=== PATIENT | female | born 1985 | race Caucasian/White ===

== ENCOUNTER → 2019-12-06 | Outpatient (CLI) | payer OTHER ==
[~2019-12-06] MED LIST: PNV1TABL78 PO
[2019-12-06 12:31] LABS: BILIRUBIN,URINE NEGATIVE (NEG); CLARITY,URINE CLEAR; COLOR,URINE YELLOW; NITRITE,URINE NEGATIVE (NEG); PROTEIN,URINE NEGATIVE (NEG-TRACE); UROBILINOGEN,URINE 0.2 mg/dL (0.2 mg/dL)
[2019-12-06 12:31] LABS: BASO % 1 % (0-3); EOS % 1 % (0-3); HEMATOCRIT 39.6 % (36.0-47.0); HEMOGLOBIN 13.8 g/dL (12.0-15.5); LYMPH # 1.7 x10^3/uL (1.0-4.8); LYMPH % 28 % (24-48); MEAN CORPUSCULAR HEMOGLOBIN 32 pg (25-35); MEAN CORPUSCULAR HGB CONC 35 g/dL (31-37); MEAN CORPUSCULAR VOLUME 91 fL (79-100); MONO # 0.4 x10^3/uL (0.0-1.1); MONO % 6 % (0-9); NEUT # 3.9 x10^3/uL (1.8-7.7); NEUT % 64 % (31-73); PLATELET COUNT 271 x10^3/uL (140-400); RED BLOOD COUNT 4.37 x10^6/uL (3.50-5.40); RED CELL DISTRIBUTION WIDTH 12.9 % (11.5-14.5); WHITE BLOOD COUNT 6.1 x10^3/uL (4.0-11.0)
[2019-12-06 12:43] LABS: SQUAMOUS EPITHELIAL CELL,UR FEW /LPF
[2019-12-06 12:44] LABS: BACTERIA,URINE FEW /HPF (0-FEW); RBC,URINE OCC /HPF (0-2)
[2019-12-06 12:47] LABS: ALBUMIN 4.1 g/dL (3.4-5.0); ALBUMIN/GLOBULIN RATIO 1.1 (1.0-1.7); CALCIUM 8.8 mg/dL (8.5-10.1); CREATININE 0.6 mg/dL (0.6-1.0); GFR 115.9; POTASSIUM 3.6 mmol/L (3.5-5.1); TOTAL BILIRUBIN 0.4 mg/dL (0.2-1.0); TOTAL PROTEIN 7.8 g/dL (6.4-8.2)
== END | disposition home or self-care (01) ==
LOC: SURGPAT 11:38
PROVIDERS: ATTEND Obstetrics & Gynecology
DX: Z01.818 Encounter for other preprocedural examination (principal)
CPT/HCPCS: 36415; 80053; 81001; 85025

== ENCOUNTER 2019-12-12 05:46 | Observation (INO) | payer OTHER ==
[2019-12-12] VITALS (9 sets, daily range): BP systolic 91–107; BP diastolic 46–67
[~2019-12-12] VITALS: Ht 170.2 cm; Wt 181.0 kg
[2019-12-12] MEDS: IV RINGERS,LACTATED 1000ML 1,000 ML IV SCH ×2 (06:53→10:01)
[2019-12-12] MEDS ORDERED: HYDROmorphone 2 MG/ML VIAL IV PRN ×2 (07:00)
[2019-12-12] MEDS ORDERED: fentaNYL PF VIAL 100 MCG/2 ML VIAL IV PRN ×3 (07:00)
[2019-12-12] MEDS ORDERED: LIDOCAINE 1% PF 2 ML VIAL. ID PRN ×2 (07:00)
[2019-12-12] MEDS ORDERED: IV RINGERS,LACTATED 1000ML 1,000 ML IV SCH (07:00)
[2019-12-12] MEDS ORDERED: MORPHINE SULFATE 2 MG/ML VIAL. IV PRN ×3 (07:00→09:30)
[2019-12-12] MEDS ORDERED: ONDANSETRON PF 4 MG/2 ML VIAL. IV PRN ×3 (07:00→09:30)
[2019-12-12] MEDS ORDERED: PROCHLORPERAZINE 10 MG/2 ML VIAL. IV PRN ×2 (07:00)
[2019-12-12] MEDS ORDERED: ESTROGENS, CONJ VAGINAL CREAM 30GM TUBE. ONE (07:03)
[2019-12-12] MEDS ORDERED: INDIGOTINDISULFONATE SODIUM 40 MG/5 ML AMPUL. ONE (07:03)
[2019-12-12] MEDS ORDERED: BUPIVACAINE-EPI 0.25%-1:200000 MPF 30 ML VIAL. ONE (07:03)
[2019-12-12] MEDS ORDERED: MIDAZOLAM HCL/PF 2 MG/2 ML VIAL. ONE (07:15)
[2019-12-12] MEDS ORDERED: FAMOTIDINE 20 MG/2 ML VIAL ONE (07:15)
[2019-12-12] MEDS ORDERED: ROCURONIUM 50 MG/5 ML VIAL. ONE (07:15)
[2019-12-12] MEDS ORDERED: LIDOCAINE 2% PF 5 ML VIAL. ONE (07:15)
[2019-12-12] MEDS ORDERED: PROPOFOL 20 ML IV ONE (07:15)
[2019-12-12] MEDS ORDERED: DEXAMETHASONE SOD PHOS 4 MG/ML VIAL ONE (07:15)
[2019-12-12] MEDS ORDERED: KETOROLAC 30 MG/ML VIAL. ONE (07:15)
[2019-12-12] MEDS ORDERED: ONDANSETRON PF 4 MG/2 ML VIAL. ONE (07:15)
[2019-12-12] MEDS ORDERED: fentaNYL PF VIAL 100 MCG/2 ML VIAL ONE (07:15)
[2019-12-12] MEDS ORDERED: PHENYLEPHRINE in 0.9% NACL PF 1 MG/10 ML SYRINGE. IV ONE (07:54)
[2019-12-12] MEDS ORDERED: GLYCOPYRROLATE 1 MG/5 ML VIAL. ONE (09:03)
[2019-12-12] MEDS ORDERED: NEOSTIGMINE METHYLSULFATE 5 MG/5 ML SYRINGE. ONE (09:03)
[2019-12-12] MEDS ORDERED: SEVOFLURANE > 120 MINUTES. IH ONE (09:04)
[2019-12-12] MEDS ORDERED: 0.9 % SODIUM CHLORIDE 10 ML DISP.SYRIN. IV PRN (09:30)
[2019-12-12] MEDS ORDERED: MAGNESIUM HYDROXIDE 2,400 MG/30 ML ORAL.SUSP. PO PRN (09:30)
[2019-12-12] MEDS ORDERED: diphenhydrAMINE HCL 25 MG CAPSULE PO PRN (09:30)
[2019-12-12] MEDS ORDERED: MAG HYDROX/ALUMINUM HYD/SIMETH 30 ML ORAL.SUSP PO PRN (09:30)
[2019-12-12] MEDS ORDERED: ESTRADIOL WEEKLY 0.1 MG PATCH. TD ONE (09:30)
[2019-12-12] MEDS ORDERED: SIMETHICONE 80 MG TAB.CHEW PO PRN (09:30)
[2019-12-12] MEDS ORDERED: HYDROcodone/APAP 5/325MG 1 TAB TABLET PO PRN (09:30)
[2019-12-12] MEDS ORDERED: NALOXONE 0.4 MG/ML VIAL. IV PRN (09:30)
[2019-12-12] MEDS ORDERED: ZOLPIDEM 5 MG TABLET. PO PRN (09:30)
[2019-12-12] MEDS ORDERED: CALCIUM CARBONATE 500 MG TAB.CHEW PO PRN (09:30)
[2019-12-12] MEDS ORDERED: diphenhydrAMINE 50 MG/ML VIAL IV PRN (09:30)
[2019-12-12] MEDS ORDERED: LACTULOSE 20 GM/30 ML SOLUTION. PO PRN (09:30)
--- NOTE | 2019-12-12 09:33 | PDOC ---
BRIEF OPERATIVE NOTE Date: Dec 12, 2019 Pre-Op Diagnosis genetic carrier high risk for uterine cancer Post-Op Diagnosis same Procedure Performed LAVH/BSO Surgeon Dr. Jessica Sims Shellfish Checker GINNA Wilhelm Anesthesiologist Dr. Figueroa Anesthesia Type: General Blood Loss 60cc IV Fluid 1L Urine Output 500cc clear via barnhart Specimens Obtained cervix, uterus, bilateral tubes and ovaries Findings small uterus, paratubal cysts and normal ovaries, no significant adhesive disease Complications none Operative Note [id number] JESSICA SIMS MD Dec 12, 2019 09:33
--- NOTE | 2019-12-12 09:55 | OP ---
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 PROCEDURES: Laparoscopic-assisted vaginal hysterectomy, bilateral salpingo-oophorectomy. SURGEON: John Sims MD RELATIONSHIP MANAGER: GINNA Naidu ANESTHESIOLOGIST: Jay Figueroa MD ANESTHESIA: General. ESTIMATED BLOOD LOSS: 60 mL. URINE OUTPUT: 500 mL clear via Talavera catheter. FLUIDS: 1 liter of crystalloid. FINDINGS: A small uterus, paratubal cyst, but otherwise normal tubes bilaterally, normal ovaries. No significant adhesive disease. She had some adhesions up near her colon and her appendix, nothing significant, but that was it throughout the entire abdomen and normal right upper quadrant and grossly normal bowel. COMPLICATIONS: None. DESCRIPTION OF PROCEDURE: This patient was taken to the operating room where general anesthesia was placed. The patient was placed in a dorsal lithotomy position in [facility]. The patient's abdomen and vagina were both prepped and draped in the normal sterile fashion and a Talavera catheter was inserted under sterile technique. Upon my arrival, a timeout was performed. Once everyone agreed that she had received her antibiotics, the patient, the site, the procedure, the surgeon and the procedure was started. A bivalve speculum was placed in the patient's vagina. A single-tooth tenaculum was used to grasp the anterior lip of the cervix. The IUD strings could be seen at the cervix. A single tooth tenaculum was used to grasp the anterior lip of the cervix. A 10 mL of 0.25% Marcaine with epinephrine was used to circumferentially inject around the cervix for both hemodissection and hemostatic purposes later. The Valtchev uterine manipulator was placed through the endocervical os, locked on the single tooth tenaculum and the bivalve speculum was then removed. Top gloves were discarded and changed. Attention was then turned to the abdomen where a small infraumbilical skin incision was made with the scalpel. A curved Ericka was used to dissect through the subcuticular layer to the fascia. The 5 mm Visiport was used to directly into the abdominal cavity. Opening patient pressure was 2-3 mmHg. Carbon dioxide gas was used to then appropriately insufflate the abdominal cavity to maintain a pressure of 15 mmHg. The patient was placed in Trendelenburg position. The anterior abdominal wall was clear of any adhesions. So, the right and left lower quadrant ports were placed after transilluminating the abdominal wall, finding an area clear of any vasculature and placing 5 mm disposable atraumatic ports under direct visualization. A 4-5 mL of air was then put into the trocar cuff on both of these. The camera was then moved laterally to look at the umbilical port. It was in and clear, so it was also filled with the 4-5 mL of air in the trocar cuff. At this point, the procedure was begun. The left tube and ovary were elevated. The ureter could be seen very clearly coursing low in the pelvis, elevating it, crossing the left infundibulopelvic ligament with the LigaSure, going over towards the uterus, crossing the left round ligament and then it and starting the bladder flap from this side, then getting the uterines on this side once the bladder was taken down on that side. This was done exactly the same on the right side, elevating the right tube and ovary, finding the ureter coursing very low in the pelvis and once we identified it low and out of the way crossing high right under the ovary with on the infundibulopelvic ligament with the LigaSure, cauterizing and cutting, then going over under the tube and then crossing the right round ligament, right next to the uterus. Again, going down and making that bladder flap getting that edge down, cutting it and just gently pulling it down and obtaining the uterine vessels on this side as well. The uterus did begin to ashley and the rest of the bladder flap was created sharply and pulled down easily. Then going down the left side, pushing in cephalad on the uterus and hugging and staying right on the cervix, going down to the level of the uterosacral right inside that uterine vessel pedicle on the left side. On the right side, staying right inside and just gently working our way down hugging the cervix and getting the vasculature and peeling it down on the right side as well. It was completely free and it was completely blanched, so everything was removed from the abdomen and attention was turned vaginally. The single tooth and Valtchev were removed. A weighted speculum was placed in the patient's vagina. Thyroid Joe clamps were placed on the anterior and posterior lips of the cervix respectively. A scalpel was used to make a circumferential incision in the cervix. An open Ray-Gudelia was used to gently push up the anterior bladder peritoneum after it was taken off sharply and bluntly. The anterior cul-de-sac was sharply entered with Metzenbaum scissors. The 4 x 4 was removed and the curved Velma was placed in the anterior cul-de-sac. The cervix was elevated and the posterior cul-de-sac was sharply entered with curved Lagunas scissors. A #0 Vicryl stitch was used to secure the posterior peritoneum here to the vaginal cuff. A curved Ericka clamp was placed on this and the needle was cut and passed off. The short weighted speculum was removed from the vagina and replaced with the long weighted Lakshmi speculum in the posterior cul-de-sac. Curved Lowell clamps x 2 were placed on the patient's left uterosacral ligament where they were doubly clamped with curved Heaneys, cut with Lagunas scissors and suture ligated x 2 with 0 Vicryl. Second one was taken through the vaginal cuff securing uterosacral ligament to the vaginal cuff, tagged with a straight Ericka clamp and the needle was cut and passed off. This was done exactly the same on the right side, double clamping the uterosacrals with curved Lowell's, cutting with Lagunas scissors, suture ligating x 2 with 0 Vicryl, taking the second one through the vaginal cuff securing uterosacral ligament to the vaginal cuff, tagging it with a straight Ericka clamp and cutting and passing the needle off. Once this was done, the right angle clamp was used to delineate the remaining pedicle on both sides and the vaginal LigaSure was used to cauterize and cut the remaining pedicle. Cervix, uterus, bilateral tubes and ovaries were delivered in total for permanent pathology. There was a tiny paratubal cyst that was attached to the posterior cuff peritoneum. It was easily grasped and it drained. The other paratubal cyst came out in total with a permanent pathology specimen on the tubes. A sponge stick was used to examine the pedicles, they were dry. It was just red on the patient's right side, so it was grasped with the vaginal LigaSure on the right above the uterosacral, but it looked great. There was no active bleeding. The long Lakshmi speculum was removed from the posterior cul-de-sac and the short weighted speculum was placed back in the vagina. Again made sure it was completely clear. A long Allis was used to grasp the anterior bladder peritoneum and everything remained hemostatic and all the pedicles looked good. So, 2-0 Vicryl was used to close the anterior bladder peritoneum, left uterosacral ligament, posterior peritoneum and right uterosacral ligament, thus closing the peritoneum in a pursestring like fashion. Once this was done, the right and left uterosacral tags were clipped and the cuff was closed in an anterior to posterior running locked fashion with a full length 2-0 Vicryl and tied to that posterior cuff tag. Once everything was done, it was examined with a sponge stick and it was hemostatic. All gloves were removed and the bottom instruments were all counted x 2 and were correct and attention was turned back above for a second look. The patient was placed back in Trendelenburg. Gas was reinsufflated. Copious irrigation revealed hemostasis. Tisseel was placed over the cuff. All three of the trocar balloons were deflated on the trocar cuff. The right and left lower quadrant ports were removed under direct visualization. These were hemostatic. The cuff remained hemostatic even releasing the gas and so the gas was released from that umbilical port and once it was done, all 3 trocars were removed and closed with 4-0 nylon at the skin and injected with local. The patient was then awakened from anesthesia and brought to recovery room in stable condition. JOHN SIMS MD DR: KAMAR/berenice JOB#: [id number] / [id number]
[2019-12-12] MEDS: fentaNYL PF VIAL 100 MCG/2 ML VIAL IV PRN ×2 (10:26→10:53)
[2019-12-12] MEDS: oxyCODONE/APAP 5/325 1 TAB TABLET PO PRN ×2 (12:19→16:58)
--- NOTE | 2019-12-12 18:45 | NUR ---
Discharge Note: MT LOZADA Discharge instructions and discharge home medications reviewed with Patient and a copy given. All questions have been answered and understanding verbalized. The following instructions and handouts were given: DOMO SBJocelyne Discontinued lines and drains: Peripheral IV intact. Patient discharged to Home or Self Care with Spouse via Ambulated walked off unit by RN
--- NOTE | 2019-12-13 17:06 | PATHOLOGY ---
[facility] Accession Number: [id number] . 01 Material submitted: . uterus - CERVIX, UTERUS, BILATERAL TUBES BILATERAL OVARIES . 01 Clinical history: . MLH mutation; cancer . 02 Diagnosis: Uterus and attached bilateral fallopian tubes and ovaries, hysterectomy with bilateral salpingo-oophorectomy: - Adenomyosis, uterine corpus, focal. - Chronic cervicitis with focal squamous metaplasia. - Presence of IUD within endometrial cavity. - Atrophic endometrium showing fibrosis and focal deciduoid change. - Right paratubal cysts. - Cystic follicles of bilateral ovaries. (JPM:araceli; 12/13/2019) S 12/13/2019 1432 Local . 02 Comment: There is no atypia or evidence of malignancy. (JPM:araceli; 12/13/2019) . 02 Electronically signed: . Sha Eldridge MD, Pathologist NPI- [id number] . 01 Gross description: . The specimen is received in formalin labeled "Ya Bhardwaj, cervix, uterus, bilateral tubes, bilateral ovaries". Received is a 68 g, 7.4 x 4.7 x 3.4 cm uterus with attached cervix and attached adnexa, weighing 12 and 17 g, left and right, respectively. The uterine serosa is pink-santiago and smooth in appearance. The 1.4 cm cervical os is surrounded by pale santiago, smooth ectocervical mucosa. The uterus is oriented using the peritoneal reflection and the anterior paracervical margin is inked black. The uterus is opened laterally to reveal a pink-santiago endocervical canal measuring 2.8 cm in length. The endometrial cavity is triangular measuring 4.1 cm in length by 2.9 cm in width. Within the endometrial cavity, a white T-shaped IUD is identified. The endometrium is pink-santiago, glistening to slightly granular in appearance and measures 0.1 cm in thickness. Serial sectioning reveals a santiago-pink, trabeculated myometrium measuring up to 1.8 cm in thickness with no grossly distinct nodules or lesions. . The left adnexa consists of a fimbriated fallopian tube measuring 4.5 cm in length by up to 0.5 cm in diameter attached to a 3.0 x 2.2 x 1.8 cm cystic ovary. Sectioning through the fallopian tube reveals a patent lumen and the fallopian tube appears grossly unremarkable. Sectioning through the ovary reveals multiple cystic structures ranging in size from 0.3 to 0.5 cm filled with blood-tinged fluid. The remaining cut surfaces display pale santiago, normal ovarian stroma. . The right adnexa consists of a fimbriated fallopian tube measuring 7.5 cm in length by up to 0.6 cm in diameter attached to a 3.6 x 2.2 x 1.5 cm cystic ovary. The fallopian tube displays several attached paratubal cysts ranging in size from 0.7 to 2.4 cm filled with clear serous fluid. Sectioning through the fallopian tube reveals a pinpoint to patent lumen and the fallopian tube appears grossly unremarkable. Sectioning through the ovary reveals multiple cystic structures ranging in size from 0.3 to 0.6 cm filled with blood-tinged fluid. The remaining cut surfaces display pale santiago, normal ovarian stroma. The specimen is submitted representatively as follows: . A1 12:00 cervix A2 6:00 cervix A3 anterior endomyometrium A4 posterior endometrium A5 left adnexa A6-A7 right adnexa. (CAA; 12/12/2019) QA/[facility] 12/12/2019 1745 Local . 02 Pathologist provided ICD-10: N80.8, N72, N87.9, N85.8, N83.8, N83.01, N83.02 . 02 CPT . 021791 Specimen Comment: A courtesy copy of this report has been sent to [phone] Specimen Comment: Report sent to Specimen Comment: A duplicate report has been generated due to demographic updates. Performed at: [address], [place], [place] [id number] MD Evan Gonzalez MD Phone: [phone] Performed at: 02 [facility] [address] [place] [id number] MD Sha Eldridge MD Phone: [phone]
== END 2019-12-12 18:47 | disposition home or self-care (01) ==
LOC: SURG 05:46 → EDUNIT# 07:30 → 3 NORTH 09:40
PROVIDERS: ADMIT Obstetrics & Gynecology; ATTEND Obstetrics & Gynecology
DX: N83.8 Other noninflammatory disorders of ovary, fallopian tube and broad ligament (principal); K66.0 Peritoneal adhesions (postprocedural) (postinfection)
CPT/HCPCS: 36415; 58550; 81025; 86850; 86900; 86901; 88307; 96374; A7015; G0378; G0379; J0696; J0780; J1100; J1885; J2250; J2270; J2370; J2405; J2704; J2710; J3010; J3480; J3490; J7030; J7120